=== PATIENT | female | born 2005 | race Caucasian/White ===

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

== ENCOUNTER → 2024-07-19 | Outpatient (REF) | payer BC ==
[~2024-07-19] MED LIST changes: +FLUO-365 PO; -FLUO20CA22 PO
== END ==
LOC: M SFHCWAGY 09:29
PROVIDERS: ATTEND Obstetrics & Gynecology
DX: Z01.419 Encounter for gynecological examination (general) (routine) without abnormal findings (principal)

== ENCOUNTER → 2024-12-29 | Outpatient (CLI) | payer BC, OTHER | LOC: M WUC 13:33 | PROVIDERS: ATTEND Nurse Practitioner Family | DX: M25.571 Pain in right ankle and joints of right foot (principal) ==